=== PATIENT | male | born 1985 | race Caucasian/White ===

== ENCOUNTER 2024-09-17 05:56 | Inpatient (IN) | payer MEDICAID ==
[~2024-09-17] VITALS: Ht 172.7 cm; Wt 163.6 kg
[2024-09-17] MEDS ORDERED: HYDR25TA2 PO (06:04)
[2024-09-17] MEDS ORDERED: LOSA-382 PO (06:04)
[2024-09-17] MEDS: FUROSEMIDE 40 MG/4 ML VIAL IVP ONE (06:37)
[2024-09-17] MEDS: ASPIRIN 325 MG TABLET PO ONE (06:38)
[2024-09-17 06:41] LABS: BASOPHILS % (AUTO) 0.8 % (0.0-2.0); EOSINOPHILS % (AUTO) 2.3 % (1.0-6.0); HEMATOCRIT 42.2 % (41-53); HEMOGLOBIN 14.5 g/dL (13.5-17.5); LYMPHOCYTES # (AUTO) 1.5 K/uL (1.0-4.8); LYMPHOCYTES % (AUTO) 14.1 % (22.0-44.0); MEAN CORPUSCULAR HEMOGLOBIN 28.7 pg (26.0-34.0); MEAN CORPUSCULAR HGB CONC 34.4 G/dL (31.0-37.0); MEAN CORPUSCULAR VOLUME 83 fL (80-100); MONOCYTES # (AUTO) 0.6 K/uL (0.1-1.0); MONOCYTES % (AUTO) 5.1 % (2.0-9.0); NEUTROPHILS # (AUTO) 8.5 K/uL (1.8-7.7); NEUTROPHILS % (AUTO) 77.7 % (40.0-70.0); PLATELET COUNT (AUTO) 197 K/uL (150-450); RED BLOOD CELL COUNT(AUTO) 5.06 MIL/uL (4.50-5.90); WHITE BLOOD COUNT (AUTO) 10.9 K/uL (4.5-11.0)
[2024-09-17 06:53] LABS: ANION GAP 6 mmol/L (8-16); CALCIUM, TOTAL 8.4 mg/dL (8.8-10.5); CARBON DIOXIDE 29 mmol/L (22-29); CHLORIDE 105 mmol/L (98-107); CREATININE 0.95 mg/dL (0.60-1.30); GLOMERULAR FILTR. RATE CALC > 60 mL/min (>60); GLUCOSE,RANDOM 118 mg/dL (70-110); POTASSIUM 3.7 mmol/L (3.5-5.1); SODIUM SERUM 140 mmol/L (136-145); UREA NITROGEN, BLOOD 16 mg/dL (7-18)
[2024-09-17 07:02] LABS: TROPONIN I-HIGH SENSITIVITY 30 ng/L (<76)
[2024-09-17] MEDS: HydrALAZINE HCL 20 MG/ML VIAL IVP ONE (07:19)
[2024-09-17] MEDS: NITROGLYCERIN 2% (1 GM=INCH) OINTMENT PACKET TP ONE (07:19)
[2024-09-17 07:23] LABS: B-TYPE NATRIURETIC PEPTIDE 126 pg/mL (0-100)
[2024-09-17 07:28] LABS: APPEARANCE,URINE CLEAR (CLEAR); BILIRUBIN,URINE NEGATIVE (NEGATIVE); COLOR,URINE LIGHT YELLOW (YELLOW); GLUCOSE, URINE (UA) NEGATIVE (NEGATIVE); KETONES,URINE NEGATIVE (NEGATIVE); LEUKOCYTE ESTERASE ,URINE NEGATIVE (NEGATIVE); NITRATE,URINE NEGATIVE (NEGATIVE); OCCULT BLOOD,URINE NEGATIVE (NEGATIVE); PH,URINE 6.5 (5.0-8.0); PH,URINE DRUG SCREEN 6.5 (5.0-8.0); PROTEIN,URINE TRACE mg/dL (NEGATIVE); UROBILINOGEN,URINE <=1.0 mg/dL (<=1.0)
[2024-09-17 07:29] LABS: BACTERIA,URINE None Seen /HPF (None Seen); RBC,URINE None Seen /HPF (0-2); WBC,URINE None Seen /HPF (0-5)
[2024-09-17 07:36] LABS: ALCOHOL, URINE DRUG SCREEN NEGATIVE (NEGATIVE); AMPHET/METH SCREEN,URINE NEGATIVE (NEGATIVE); BARBITURATE SCREEN, URINE NEGATIVE (NEGATIVE); BENZODIAZEPINES SCREEN,URINE NEGATIVE (NEGATIVE); CANNABINOID SCREEN,URINE NEGATIVE (NEGATIVE); COCAINE SCREEN,URINE NEGATIVE (NEGATIVE); METHADONE SCREEN, URINE NEGATIVE (NEGATIVE); OPIATE SCREEN,URINE NEGATIVE (NEGATIVE); PHENCYCLIDINE SCREEN,URINE NEGATIVE (NEGATIVE)
[2024-09-17] MEDS: BUMETANIDE 0.25 MG/ML 4 ML VIAL IVP ONE (09:30)
[2024-09-17 09:56] VITALS: BP 148/109; PULSE 102; RESP 19; O2SAT 99
[2024-09-17 12:15] VITALS: BP 134/99; PULSE 86; RESP 18; TEMP 97.6; O2SAT 97
[2024-09-17] MEDS: ACETAMINOPHEN 325 MG TABLET PO PRN (12:22)
[2024-09-17] MEDS ORDERED: MAGNESIUM HYDROXIDE SUSPENSION 30 ML UDCUP PO PRN (13:45)
[2024-09-17] MEDS ORDERED: BISACODYL 10 MG RECTAL RECTAL SUPPOSITORY PR PRN (13:45)
[2024-09-17] MEDS: HYDROCODONE/ACETAMINOPHEN 5-325 MG TABLET PO PRN (14:16)
[2024-09-17 15:42] LABS: TROPONIN I-HIGH SENSITIVITY 28 ng/L (<76)
[2024-09-17 16:00] VITALS: BP 146/111; PULSE 109; RESP 20; TEMP 98.2; O2SAT 97
[2024-09-17] MEDS: HEPARIN SODIUM,PORCINE 5,000 UNITS/ML VIAL SQ SCH (16:38)
[2024-09-17 20:01] VITALS: BP 166/111; PULSE 106; RESP 21; TEMP 98.2; O2SAT 94
[2024-09-17] MEDS: FUROSEMIDE 20 MG/2 ML VIAL IVP SCH (20:34)
[2024-09-17] MEDS: CARVEDILOL 6.25 MG TABLET PO SCH (20:34)
[2024-09-17] MEDS: DOCUSATE SODIUM 100 MG CAPSULE PO SCH (20:34)
[2024-09-17 21:09] LABS: TROPONIN I-HIGH SENSITIVITY 27 ng/L (<76)
[2024-09-17 21:30] VITALS: BP 149/105; O2SAT 97
[2024-09-18] VITALS (12 sets, daily range): BP systolic 129–174; BP diastolic 76–126; PULSE 80–110; RESP 16–22; TEMP 97.7–98.4; O2SAT 93–99
[2024-09-18] MEDS: ACETAMINOPHEN 325 MG TABLET PO PRN (00:48)
[2024-09-18] MEDS: ZOLPIDEM TARTRATE 5 MG TABLET PO PRN (00:48)
[2024-09-18 02:19] LABS: TROPONIN I-HIGH SENSITIVITY 31 ng/L (<76)
[2024-09-18] MEDS: PANTOPRAZOLE SODIUM 40 MG DR TABLET PO SCH (08:38)
[2024-09-18] MEDS: ASPIRIN 81 MG DR TABLET PO SCH (08:38)
[2024-09-18] MEDS: LISINOPRIL 5 MG TABLET PO SCH (08:38)
[2024-09-18] MEDS: HydrALAZINE HCL 20 MG/ML VIAL IVP PRN (11:04)
[2024-09-18] MEDS: IPRATROPIUM BROMIDE 0.5 MG/2.5 ML NEB SOLUTION NEB SCH (14:16)
[2024-09-18] MEDS: ALBUTEROL SULFATE 2.5 MG/0.5 ML NEB SOLUTION NEB SCH (14:16)
[2024-09-18] MEDS: ONDANSETRON HCL 4 MG/2 ML VIAL IVP PRN (18:13)
[2024-09-18] MEDS: MORPHINE SULFATE 2 MG/ML SYRINGE IVP PRN (19:58)
[2024-09-18] MEDS ORDERED: IOHEXOL 350 MG/ML 100 ML VIAL ONE (22:58)
[2024-09-18] MEDS ORDERED: SODIUM CHLORIDE 0.9% 100 ML ONE (22:58)
[2024-09-19] VITALS (15 sets, daily range): BP systolic 106–157; BP diastolic 71–107; PULSE 91–106; RESP 16–26; TEMP 97.7–98.3; O2SAT 93–98
[2024-09-19 06:52] LABS: BASOPHILS % (AUTO) 0.2 % (0.0-2.0); EOSINOPHILS % (AUTO) 0.3 % (1.0-6.0); HEMATOCRIT 42.4 % (41-53); HEMOGLOBIN 14.4 g/dL (13.5-17.5); LYMPHOCYTES # (AUTO) 1.2 K/uL (1.0-4.8); LYMPHOCYTES % (AUTO) 9.7 % (22.0-44.0); MEAN CORPUSCULAR HEMOGLOBIN 28.6 pg (26.0-34.0); MEAN CORPUSCULAR HGB CONC 33.9 G/dL (31.0-37.0); MEAN CORPUSCULAR VOLUME 84 fL (80-100); MONOCYTES # (AUTO) 0.5 K/uL (0.1-1.0); MONOCYTES % (AUTO) 4.2 % (2.0-9.0); NEUTROPHILS # (AUTO) 10.8 K/uL (1.8-7.7); PLATELET COUNT (AUTO) 236 K/uL (150-450); RED BLOOD CELL COUNT(AUTO) 5.03 MIL/uL (4.50-5.90); RED CELL DISTRIBUTION WIDTH 16.1 % (11.5-14.5); WHITE BLOOD COUNT (AUTO) 12.6 K/uL (4.5-11.0)
[2024-09-19 06:54] LABS: NEUTROPHILS % (AUTO) 85.6 % (40.0-70.0)
[2024-09-19 07:01] LABS: ANION GAP 7 mmol/L (8-16); CALCIUM, TOTAL 8.8 mg/dL (8.8-10.5); CARBON DIOXIDE 31 mmol/L (22-29); CHLORIDE 103 mmol/L (98-107); CREATININE 0.97 mg/dL (0.60-1.30); GLOMERULAR FILTR. RATE CALC > 60 mL/min (>60); GLUCOSE,RANDOM 120 mg/dL (70-110); POTASSIUM 3.5 mmol/L (3.5-5.1); SODIUM SERUM 141 mmol/L (136-145); UREA NITROGEN, BLOOD 16 mg/dL (7-18)
[2024-09-19] MEDS: LISINOPRIL 20 MG TABLET PO SCH (09:01)
[2024-09-19] MEDS: AmLODIPine BESYLATE 5 MG TABLET PO SCH (13:55)
[2024-09-19] MEDS: CARVEDILOL 6.25 MG TABLET PO SCH (20:18)
[2024-09-19] MEDS: BUDESONIDE 0.5 MG/2 ML NEB SOLUTION NEB SCH (20:50)
[2024-09-20] VITALS (15 sets, daily range): BP systolic 120–144; BP diastolic 76–86; PULSE 80–96; RESP 16–30; TEMP 98–98.8; O2SAT 94–99
[2024-09-20 08:18] LABS: BASOPHILS % (AUTO) 0.6 % (0.0-2.0); EOSINOPHILS % (AUTO) 1.9 % (1.0-6.0); HEMATOCRIT 42.4 % (41-53); HEMOGLOBIN 14.2 g/dL (13.5-17.5); LYMPHOCYTES # (AUTO) 2.1 K/uL (1.0-4.8); LYMPHOCYTES % (AUTO) 19.8 % (22.0-44.0); MEAN CORPUSCULAR HEMOGLOBIN 28.1 pg (26.0-34.0); MEAN CORPUSCULAR HGB CONC 33.4 G/dL (31.0-37.0); MEAN CORPUSCULAR VOLUME 84 fL (80-100); MONOCYTES # (AUTO) 0.9 K/uL (0.1-1.0); NEUTROPHILS # (AUTO) 7.6 K/uL (1.8-7.7); NEUTROPHILS % (AUTO) 69.7 % (40.0-70.0); PLATELET COUNT (AUTO) 215 K/uL (150-450); RED BLOOD CELL COUNT(AUTO) 5.04 MIL/uL (4.50-5.90); RED CELL DISTRIBUTION WIDTH 15.9 % (11.5-14.5); WHITE BLOOD COUNT (AUTO) 10.8 K/uL (4.5-11.0)
[2024-09-20 08:28] LABS: ANION GAP 6 mmol/L (8-16); CALCIUM, TOTAL 8.8 mg/dL (8.8-10.5); CARBON DIOXIDE 32 mmol/L (22-29); CHLORIDE 105 mmol/L (98-107); CREATININE 1.12 mg/dL (0.60-1.30); GLOMERULAR FILTR. RATE CALC > 60 mL/min (>60); GLUCOSE,RANDOM 75 mg/dL (70-110); POTASSIUM 3.3 mmol/L (3.5-5.1); SODIUM SERUM 143 mmol/L (136-145); UREA NITROGEN, BLOOD 21 mg/dL (7-18)
[2024-09-21] VITALS (16 sets, daily range): BP systolic 116–146; BP diastolic 74–99; PULSE 80–97; RESP 16–20; TEMP 97.3–98.3; O2SAT 93–100
[2024-09-21 06:52] LABS: BASOPHILS % (AUTO) 0.6 % (0.0-2.0); EOSINOPHILS % (AUTO) 2.2 % (1.0-6.0); HEMATOCRIT 42.3 % (41-53); HEMOGLOBIN 14.4 g/dL (13.5-17.5); LYMPHOCYTES # (AUTO) 1.7 K/uL (1.0-4.8); LYMPHOCYTES % (AUTO) 16.8 % (22.0-44.0); MEAN CORPUSCULAR HEMOGLOBIN 28.5 pg (26.0-34.0); MEAN CORPUSCULAR VOLUME 84 fL (80-100); MONOCYTES # (AUTO) 0.7 K/uL (0.1-1.0); MONOCYTES % (AUTO) 6.9 % (2.0-9.0); NEUTROPHILS # (AUTO) 7.3 K/uL (1.8-7.7); NEUTROPHILS % (AUTO) 73.5 % (40.0-70.0); PLATELET COUNT (AUTO) 192 K/uL (150-450); RED BLOOD CELL COUNT(AUTO) 5.05 MIL/uL (4.50-5.90); RED CELL DISTRIBUTION WIDTH 15.8 % (11.5-14.5)
[2024-09-21 07:00] LABS: ANION GAP 6 mmol/L (8-16); CALCIUM, TOTAL 9.1 mg/dL (8.8-10.5); CARBON DIOXIDE 33 mmol/L (22-29); CHLORIDE 103 mmol/L (98-107); CREATININE 1.16 mg/dL (0.60-1.30); GLOMERULAR FILTR. RATE CALC > 60 mL/min (>60); GLUCOSE,RANDOM 125 mg/dL (70-110); POTASSIUM 3.9 mmol/L (3.5-5.1); SODIUM SERUM 142 mmol/L (136-145); UREA NITROGEN, BLOOD 20 mg/dL (7-18)
[2024-09-21] MEDS ORDERED: SODIUM CHLORIDE 3% 15 ML NEB SOLUTION NEB ONE (11:10)
[2024-09-21] MEDS: CARVEDILOL 12.5 MG TABLET PO SCH (20:25)
[2024-09-22] VITALS (13 sets, daily range): BP systolic 127–132; BP diastolic 78–97; PULSE 76–132; RESP 16–19; TEMP 97.8–98.4; O2SAT 95–100
[2024-09-23] VITALS (9 sets, daily range): BP systolic 133–143; BP diastolic 76–99; PULSE 80–88; RESP 18–20; TEMP 97.6–98.3; O2SAT 97–100
[2024-09-23] MEDS: AmLODIPine BESYLATE 5 MG TABLET PO SCH (08:54)
[2024-09-23] MEDS ORDERED: CARV12 PO (12:57)
[2024-09-23] MEDS ORDERED: AMLO-257 PO (15:48)
[2024-09-24 12:07] LABS: QUANTIFERON+, Nil Value 0.01 IU/mL; QUANTIFERON+,TB1 Antigen Value 0.05 IU/mL; QUANTIFERON+,TB2 Antigen Value 0.06 IU/mL; QUANTIFERON, TB GOLD PLUS Negative (Negative)
== END 2024-09-23 16:30 | disposition home or self-care (01) | DRG 194 ==
LOC: EMS 05:57 → EDH 07:59 → 5N 09:50 → 4E 09-21 18:08
PROVIDERS: ADMIT Internal Medicine; ATTEND Internal Medicine
DX: I11.0 Hypertensive heart disease with heart failure (principal); J68.0 Bronchitis and pneumonitis due to chemicals, gases, fumes and vapors; E44.0 Moderate protein-calorie malnutrition; J44.0 Chronic obstructive pulmonary disease with (acute) lower respiratory infection; E66.2 Morbid (severe) obesity with alveolar hypoventilation; K76.0 Fatty (change of) liver, not elsewhere classified; J45.901 Unspecified asthma with (acute) exacerbation; T59.891A Toxic effect of other specified gases, fumes and vapors, accidental (unintentional), initial encounter; Z68.43 Body mass index [BMI] 50.0-59.9, adult; I16.0 Hypertensive urgency; I50.31 Acute diastolic (congestive) heart failure; Z79.82 Long term (current) use of aspirin; J20.9 Acute bronchitis, unspecified; Z79.899 Other long term (current) drug therapy; J45.909 Unspecified asthma, uncomplicated; Y92.89 Other specified places as the place of occurrence of the external cause
CPT/HCPCS: 70450; 71045; 71270; 80048; 80307; 81001; 83880; 84484; 85025; 86171; 86480; 93005; 93306; 94640; 94660; 96374; 96375; 97162; 97165; 97530; 99291; G0378; J0360; J1644; J1940; J2270; J2405; J3490; J7050; 36415-L1; 36415-TC; J7613